=== PATIENT | female | born 1990 | race Two or more races ===

== ENCOUNTER 2020-08-09 22:26 | Outpatient (CLI) | payer OTHER ==
[2020-08-09] MEDS ORDERED: PRENATAL TABLE1 EAC1 PO (22:35)
== END 2020-08-10 09:38 | disposition home or self-care (01) ==
LOC: OBS/DEL 22:26
PROVIDERS: ATTEND Obstetrics & Gynecology
DX: O26.892 Other specified pregnancy related conditions, second trimester (principal); R10.2 Pelvic and perineal pain; Z3A.22 22 weeks gestation of pregnancy

== ENCOUNTER 2020-12-02 13:00 | Inpatient (IN) | payer OTHER ==
[~2020-12-02] VITALS: Ht 167.6 cm; Wt 78.9 kg
[~2020-12-02 13:00] MED LIST: PRENATAL TABLE1 EAC1 PO
== END 2020-12-10 12:57 | disposition home or self-care (01) | DRG 807 ==
LOC: LDR 12-08 02:16 → OB/GYN 12-08 15:12
PROVIDERS: ADMIT Obstetrics & Gynecology; ATTEND Obstetrics & Gynecology
PROC: 10E0XZZ Delivery of Products of Conception, External Approach (ICD-10-PCS; principal; 2020-12-08)
PROC: 0KQM0ZZ Repair Perineum Muscle, Open Approach (ICD-10-PCS; 2020-12-08)
PROC: 10907ZC Drainage of Amniotic Fluid, Therapeutic from Products of Conception, Via Natural or Artificial Opening (ICD-10-PCS; 2020-12-08)
PROC: 3E033VJ Introduction of Other Hormone into Peripheral Vein, Percutaneous Approach (ICD-10-PCS; 2020-12-08)
PROC: 4A1HXFZ Monitoring of Products of Conception, Cardiac Rhythm, External Approach (ICD-10-PCS; 2020-12-08)
DX: O70.1 Second degree perineal laceration during delivery (principal); Z37.0 Single live birth; Z3A.39 39 weeks gestation of pregnancy